=== PATIENT | female | born 1975 | race African-American/Black ===

== ENCOUNTER 2019-11-12 06:44 | Emergency (ER) | payer MEDICARE ==
[~2019-11-12] VITALS: Ht 167.6 cm; Wt 154.2 kg
--- OUTSIDE RECORDS SUMMARY | 2019-11-12 06:47 | XMS REPORT ---
Author Author [facility] Organization [facility] Address Unknown Phone Unavailable Care Team Providers Care [employer] Clerk Name Role Phone Unavailable Unavailable Problems This patient has no known problems. Allergies, Adverse Reactions, Alerts This patient has no known allergies or adverse reactions. Medications This patient has no known medications. Encounters Start Date/Time End Date/Time Encounter Type Admission Type [facility] Care Department Encounter ID 2018-12-11 11:54:00 2018-12-11 11:54:00 Outpatient [id number] 2017-03-29 00:00:00 2017-03-29 00:00:00 Outpatient [facility] [id number] 2017-03-10 00:00:00 2017-03-10 00:00:00 Outpatient [facility] [id number] 2017-02-24 00:00:00 2017-02-24 00:00:00 Outpatient [facility] [id number] 2017-02-22 08:34:36 2017-02-22 08:34:36 Outpatient [facility] [id number] 2017-02-15 10:23:56 2017-02-15 10:23:56 Outpatient [facility] [id number] 2017-02-15 08:56:44 2017-02-15 08:56:44 Outpatient [facility] [id number] 2017-02-10 00:00:00 2017-02-10 00:00:00 Outpatient [facility] [id number] 2017-02-08 00:00:00 2017-02-08 00:00:00 Outpatient [facility] [id number] 2017-02-02 11:27:42 2017-02-02 11:27:42 Outpatient [facility] [id number] 2017-02-01 11:22:10 2017-02-01 11:22:10 Outpatient [facility] [id number] 2017-02-01 09:51:29 2017-02-01 09:51:29 Outpatient [facility] [id number]
[2019-11-12] MEDS ORDERED: AUGMENTIN 500-1 EACH PO (07:58)
== END 2019-11-12 08:01 | disposition home or self-care (01) ==
LOC: FSED 06:44
DX: J02.9 Acute pharyngitis, unspecified (principal); H66.92 Otitis media, unspecified, left ear
CPT/HCPCS: 83518; 99283

== ENCOUNTER 2021-08-13 16:34 | Emergency (ER) | payer OTHER ==
[~2021-08-13] VITALS: Ht 167.6 cm; Wt 155.8 kg
[~2021-08-13 16:34] MED LIST: AUGMENTIN 500-1 EACH PO
== END 2021-08-13 18:19 | disposition home or self-care (01) ==
LOC: FSED 17:00
DX: R10.30 Lower abdominal pain, unspecified (principal); E86.0 Dehydration; E87.6 Hypokalemia; I10 Essential (primary) hypertension; E78.5 Hyperlipidemia, unspecified; M54.9 Dorsalgia, unspecified; G89.29 Other chronic pain
CPT/HCPCS: 81003; 81025; 99283

== ENCOUNTER 2022-02-14 08:54 | Emergency (ER) | payer BC, OTHER ==
[~2022-02-14] VITALS: Ht 162.6 cm; Wt 156.9 kg
[2022-02-14] MEDS ORDERED: AMLODIPINE BESY10 MG PO (09:07)
[2022-02-14] MEDS ORDERED: HYDROCHLOROTHIA25 MG PO (09:07)
[2022-02-14] MEDS ORDERED: LISINOPRIL10 MG PO (09:07)
[2022-02-14] MEDS ORDERED: AZITHROMYCIN250 MG PO (09:16)
[2022-02-14] MEDS ORDERED: ACETAMINOPHEN500 MG PO (09:16)
== END 2022-02-14 09:35 | disposition home or self-care (01) ==
LOC: FSED 09:12
DX: R05.9 Cough, unspecified (principal); J06.9 Acute upper respiratory infection, unspecified; I10 Essential (primary) hypertension; E78.5 Hyperlipidemia, unspecified; E66.9 Obesity, unspecified
CPT/HCPCS: 81003; 81025; 87400; 99283

== ENCOUNTER 2022-10-16 11:25 | Emergency (ER) | payer BC, OTHER ==
[~2022-10-16] VITALS: Ht 167.6 cm; Wt 158.8 kg
[~2022-10-16 11:25] MED LIST changes: +ACETAMINOPHEN500 MG PO; +AMLODIPINE BESY10 MG PO; +AZITHROMYCIN250 MG PO; +HYDROCHLOROTHIA25 MG PO; +LISINOPRIL10 MG PO
[2022-10-16] MEDS ORDERED: GABAPENTIN300 MG PO (12:49)
== END 2022-10-16 13:05 | disposition home or self-care (01) ==
LOC: FSED 11:40
DX: M79.672 Pain in left foot (principal); M79.671 Pain in right foot; G62.9 Polyneuropathy, unspecified; I10 Essential (primary) hypertension; E78.5 Hyperlipidemia, unspecified; E66.01 Morbid (severe) obesity due to excess calories
CPT/HCPCS: 99282